=== PATIENT | female | born 1980 | race Two or more races ===

== ENCOUNTER 2017-03-27 22:40 | Outpatient (CLI) | payer OTHER, MEDICAID ==
[~2017-03-27] VITALS: Ht 165.1 cm; Wt 88.0 kg
[2017-03-27] MEDS ORDERED: DIPHENHYDRAMINE 25 MG CAPSULE ONE (23:30)
== END 2017-03-27 23:30 | disposition home or self-care (01) ==
LOC: LDOP 22:40
PROVIDERS: ATTEND Obstetrics & Gynecology Maternal & Fetal Medicine
DX: O09.523 Supervision of elderly multigravida, third trimester (principal); Z3A.37 37 weeks gestation of pregnancy
CPT/HCPCS: 59025; 99211; G0463

== ENCOUNTER 2017-04-06 16:41 | Inpatient (IN) | payer OTHER, MEDICAID ==
[~2017-04-06] VITALS: Ht 162.6 cm; Wt 87.7 kg
[2017-04-06 17:01] VITALS: BP 139/76
[2017-04-06] MEDS ORDERED: LEVO75TA5 PO (17:01)
[2017-04-06] MEDS ORDERED: PREN1TAB60 PO (17:01)
[2017-04-06] MEDS ORDERED: LIOT5TAB3 PO (17:01)
[2017-04-06] MEDS ORDERED: D5%-LACTATED RINGERS 1,000 ML IV SCH (17:24)
[2017-04-06] MEDS ORDERED: OXYTOCIN 30U/ 0.9% NaCL 500ML 500 ML IV ONE (17:24)
[2017-04-06] MEDS ORDERED: OXYTOCIN 30U/ 0.9% NaCL 500ML 500 ML IV PRN (17:24)
[2017-04-06] MEDS ORDERED: FENTANYL PF 100 MCG/2ML IV PRN (17:30)
[2017-04-06] MEDS ORDERED: ONDANSETRON 2MG/ML, 2ML IVPush PRN (17:30)
[2017-04-06] MEDS ORDERED: FENTANYL PF 100 MCG/2ML IVPush PRN (17:30)
[2017-04-06] MEDS ORDERED: TERBUTALINE 1 MG/ML, 1ML SQ PRN (17:30)
[2017-04-06] MEDS: LACTATED RINGERS 1,000 ML IV SCH ×3 (17:53→20:28)
[2017-04-06] MEDS ORDERED: NEWBORN KIT ONE ×2 (17:55→18:19)
[2017-04-06] MEDS ORDERED: OXYTOCIN 30U/ 0.9% NaCL 500ML 500 ML ONE ×2 (17:55→20:06)
[2017-04-06] MEDS ORDERED: PENICILLIN GK 5,000,000 UNITS in DEXTROSE 5% 100 ML IVPB ONE (18:00)
[2017-04-06 18:15] LABS: HEMOGLOBIN 10.2 g/dL (11.7-16.4); WHITE BLOOD COUNT 8.7 x10^3/uL (3.4-10)
[2017-04-06] MEDS ORDERED: FENTANYL PF 100 MCG/2ML ONE (18:23)
[2017-04-06] MEDS ORDERED: FENTANYL/BUPIV./NS/PF 250 ML EPIDCONT ONE (18:36)
[2017-04-06] MEDS ORDERED: LIDOCAINE/PF 1.5%-EPI 1:200K, 30ML ONE (18:36)
[2017-04-06] MEDS ORDERED: BUPIVACAINE/PF 0.25% ONE (18:36)
[2017-04-06] MEDS ORDERED: BISACODYL 10 MG SUPP PR PRN (19:30)
[2017-04-06] MEDS ORDERED: OXYcodone/APAP 5/325MG TABLET PO PRN ×2 (19:30)
[2017-04-06] MEDS ORDERED: METHYLERGONOVINE 0.2 MG/ML IM PRN (19:30)
[2017-04-06] MEDS ORDERED: ACETAMINOPHEN 325 MG TABLET PO PRN ×3 (19:30)
[2017-04-06] MEDS ORDERED: CARBOPROST TROMETHAMINE 250 MCG/ML, 1ML IM PRN (19:30)
[2017-04-06] MEDS ORDERED: GLYCERIN ADULT SUPP PR PRN (19:30)
[2017-04-06] MEDS ORDERED: MISOPROSTOL 200 MCG TABLET PR PRN (19:30)
[2017-04-06] MEDS ORDERED: ONDANSETRON 2MG/ML, 2ML IV PRN (19:30)
[2017-04-06] MEDS ORDERED: MAGNESIUM HYDROXIDE 8%, 30ML UDC PO PRN (19:30)
[2017-04-06] MEDS ORDERED: CALCIUM CARBONATE 500 MG TAB.CHEW PO PRN (19:30)
[2017-04-06] MEDS ORDERED: IBUPROFEN 600 MG TABLET ONE (19:40)
[2017-04-06] MEDS: IBUPROFEN 600 MG TABLET PO PRN (19:41)
[2017-04-06] MEDS ORDERED: ONDANSETRON 2MG/ML, 2ML ONE (20:04)
[2017-04-06] MEDS: OXYTOCIN 30U/ 0.9% NaCL 500ML 500 ML IV SCH (20:28)
[2017-04-06 21:45] VITALS: BP 140/69
[2017-04-06] MEDS ORDERED: PENICILLIN GK 2,500,000 UNITS in DEXTROSE 5% 100 ML IVPB SCH (22:00)
[2017-04-06 22:41] VITALS: BP 120/80
[2017-04-06] MEDS: LIOTHYRONINE 5 MCG TABLET PO SCH (22:43)
[2017-04-06] MEDS ORDERED: OXYC-302 PO (23:30)
[2017-04-06] MEDS ORDERED: IBUP-1222 PO (23:31)
[2017-04-07 00:10] VITALS: BP 124/77
[2017-04-07] MEDS ORDERED: LACTATED RINGERS 1,000 ML IV SCH (00:48)
[2017-04-07] MEDS ORDERED: FENTANYL/BUPIV./NS/PF 250 ML EPIDCONT SCH (00:48)
[2017-04-07] MEDS ORDERED: LACTATED RINGERS 1,000 ML IVBOLUS PRN (01:00)
[2017-04-07] MEDS: IBUPROFEN 600 MG TABLET PO PRN ×2 (02:35→08:21)
[2017-04-07 04:15] VITALS: BP 99/58
[2017-04-07 04:22] LABS: HEMOGLOBIN 9.5 g/dL (11.7-16.4); WHITE BLOOD COUNT 12.8 x10^3/uL (3.4-10)
[2017-04-07] MEDS: OXYTOCIN 30U/ 0.9% NaCL 500ML 500 ML IV SCH ×2 (05:24→15:24)
[2017-04-07] MEDS: LEVOTHYROXINE 75 MCG TABLET PO SCH (06:05)
[2017-04-07 07:40] VITALS: BP 98/56
[2017-04-07] MEDS: DOCUSATE 100 MG CAPSULE PO PRN ×2 (08:21→20:12)
[2017-04-07] MEDS: LIOTHYRONINE 5 MCG TABLET PO SCH ×2 (08:21→20:12)
[2017-04-07] MEDS ORDERED: DIPH,PERTUSS(ACELL),TET VAC/PF NC IM-VACC ONE ×2 (08:41→09:30)
[2017-04-07] MEDS: PRENATAL VIT/IRON/FA 1 EACH TABLET PO SCH (09:00)
[2017-04-07 14:40] VITALS: BP 107/70
[2017-04-07 20:00] VITALS: BP 122/78
[2017-04-08] MEDS: OXYTOCIN 30U/ 0.9% NaCL 500ML 500 ML IV SCH ×2 (01:24→11:24)
[2017-04-08] MEDS: IBUPROFEN 600 MG TABLET PO PRN ×2 (03:41→11:29)
[2017-04-08] MEDS: LEVOTHYROXINE 75 MCG TABLET PO SCH (06:07)
[2017-04-08] MEDS: PRENATAL VIT/IRON/FA 1 EACH TABLET PO SCH (08:48)
[2017-04-08] MEDS: DOCUSATE 100 MG CAPSULE PO PRN (08:48)
[2017-04-08 08:50] VITALS: BP 110/72
[2017-04-08] MEDS: LIOTHYRONINE 5 MCG TABLET PO SCH (08:51)
== END 2017-04-08 12:15 | disposition home or self-care (01) | DRG 775 ==
LOC: LDOP 16:41 → LDIP 17:14 → 2NW 21:34
PROVIDERS: ADMIT Obstetrics & Gynecology Maternal & Fetal Medicine; ATTEND Obstetrics & Gynecology Maternal & Fetal Medicine
PROC: 10E0XZZ Delivery of Products of Conception, External Approach (ICD-10-PCS; principal; 2017-04-06)
DX: O69.1XX0 Labor and delivery complicated by cord around neck, with compression, not applicable or unspecified (principal); E03.9 Hypothyroidism, unspecified; Z37.0 Single live birth; O99.284 Endocrine, nutritional and metabolic diseases complicating childbirth; O77.0 Labor and delivery complicated by meconium in amniotic fluid; O99.824 Streptococcus B carrier state complicating childbirth; Z3A.38 38 weeks gestation of pregnancy; Z23 Encounter for immunization
CPT/HCPCS: 36415; 85025; 86850; 86900; 90715; J2405; J2540; J3010; J2590; J7120

== ENCOUNTER 2018-01-02 11:56 | Emergency (ER) | payer OTHER, MEDICAID ==
[~2018-01-02] VITALS: Ht 165.1 cm; Wt 76.6 kg
[~2018-01-02 11:56] MED LIST: IBUP-1222 PO; LEVO75TA5 PO; LIOT5TAB3 PO; OXYC-302 PO; PREN1TAB60 PO
[2018-01-02 11:59] VITALS: BP 113/73
[2018-01-02 12:43] LABS: BASOPHILS # (AUTO) 0.04 x10^3/uL (0-0.1); BASOPHILS % (AUTO) 1 % (0-1); EOSINOPHILS # (AUTO) 0.24 x10^3/uL (0-0.4); EOSINOPHILS % (AUTO) 3 % (1-7); LYMPHOCYTES # (AUTO) 2.95 x10^3/uL (1-3.4); LYMPHOCYTES % (AUTO) 41 % (22-44); MD NO; MEAN CORPUSCULAR HEMOGLOBIN 29.4 pg (27.0-34.8); MEAN CORPUSCULAR HGB CONC 33.3 g/dL (32.4-35.8); MEAN CORPUSCULAR VOLUME 88.4 fL (80-100); MEAN PLATELET VOLUME 8.4 fL (7.4-10.4); MONOCYTES # (AUTO) 0.59 x10^3/uL (0.2-0.8); MONOCYTES % (AUTO) 8 % (2-9); NEUTROPHILS # (AUTO) 3.34 x10^3/uL (1.8-6.8); NEUTROPHILS % (AUTO) 47 % (42-75); PLATELET COUNT 297 x10^3/uL (130-400); RED BLOOD COUNT 4.74 x10^6/uL (3.82-5.3); RED CELL DISTRIBUTION WIDTH 12.6 % (9.6-15.2)
[2018-01-02 12:55] LABS: ALBUMIN 3.7 g/dL (3.4-5.0); ANION GAP 5 mmol/L (5-15); CALCIUM 8.7 mg/dL (8.5-10.1); CHLORIDE 109 mmol/L (98-107)
[2018-01-02 12:56] LABS: CREATININE 0.71 mg/dL (0.55-1.02)
== END 2018-01-02 14:14 | disposition home or self-care (01) ==
LOC: ED 13:39
DX: R07.89 Other chest pain (principal)
CPT/HCPCS: 36415; 76642; 80048; 82040; 85025; 99285

== ENCOUNTER → 2018-02-19 | Outpatient (CLI) | payer OTHER, MEDICAID | END | disposition home or self-care (01) | LOC: CFH 07:56 | PROVIDERS: ATTEND Obstetrics & Gynecology Maternal & Fetal Medicine | DX: N64.4 Mastodynia (principal) | CPT/HCPCS: 77066 ==

== ENCOUNTER → 2020-05-13 | Outpatient (CLI) | payer OTHER ==
[~2020-05-13] MED LIST changes: +LIOT5TAB11 PO; -LIOT5TAB3 PO
== END | disposition home or self-care (01) ==
LOC: CFH 10:40
PROVIDERS: ATTEND Family Medicine
DX: R10.31 Right lower quadrant pain (principal); R10.9 Unspecified abdominal pain
CPT/HCPCS: 74176

== ENCOUNTER → 2020-12-01 | Outpatient (CLI) | payer OTHER ==
[~2020-12-01] MED LIST changes: -OXYC-302 PO; +OXYC1TAB14 PO
== END | disposition home or self-care (01) ==
LOC: CFH 14:59
PROVIDERS: ATTEND Family Medicine
DX: N64.89 Other specified disorders of breast (principal)
CPT/HCPCS: 76642; 77062; 77066; G0279